=== PATIENT | male | born 1955 | race Caucasian/White ===

== ENCOUNTER 2020-01-21 10:25 | Day surgery (SDC) | payer MEDICARE, MEDICAID, SELFPAY ==
[2020-01-21] VITALS (11 sets, daily range): BP systolic 128–178; BP diastolic 70–92; PULSE 54–89; RESP 10–20; TEMP 36.2–36.5; O2SAT 88–98; BMI 29.9
--- NOTE | 2020-01-21 | PATH_ITS ---
[facility] Accession Number: [id number] . 01 Material submitted: . PART A: duodenum - DUODENUM PART B: gastrointestinal site - GASTRIC MUCOSA PART C: esophagus - DISTAL ESOPHAGUS PART D: colon - CECAL POLYPS . 01 Diagnosis: A. Duodenum, Biopsy: Small bowel mucosa with no diagnostic abnormality. Negative for active inflammation, features of sprue, dysplasia, or malignancy. . B. Stomach, Biopsies: Gastric antral mucosa with mild chronic inflammation. Negative for Helicobacter organisms by immunohistochemistry. Negative for intestinal metaplasia. Negative for dysplasia or malignancy. . C. Distal Esophagus, Biopsies: Squamocolumnar junctional mucosa with marked chronic inflammation, consistent with reflux esophagitis. Negative for specialized intestinal metaplasia or fungal organisms on AB/PAS stain. Negative for dysplasia or malignancy. . D. Cecum, Polyps: Fragments of tubular adenoma. [facility] 01/23/2020 1437 Local . 01 Electronically signed: . Isaac Whitmore MD, PhD, Pathologist NPI- [id number] . 01 Gross description: . Part A: DUODENUM: Received in formalin are 2 fragment(s) of flores, soft tissue measuring 0.1 x 0.1 x 0.1 cm to 0.3 x 0.3 x 0.3 cm submitted entirely in 1 cassette(s) Part B: GASTRIC MUCOSA: Received in formalin is 1 fragment(s) of flores, soft tissue measuring 0.2 x 0.2 x 0.2 cm submitted entirely in 1 cassette(s) Part C: DISTAL ESOPHAGUS: Received in formalin is 1 fragment(s) of flores, soft tissue measuring 0.2 x 0.2 x 0.2 cm submitted entirely in 1 cassette(s) Part D: CECAL POLYPS: Received in formalin are multiple fragment(s) of flores, soft tissue measuring 0.1 x 0.1 x 0.1 cm to 0.3 x 0.3 x 0.3 cm submitted entirely in 1 cassette(s) /KADIE 01/22/2020 0145 Local . 01 Microscopic: . B. An immunohistochemical stain was performed to evaluate for Helicobacter organisms and is negative. The control stain showed appropriate reactivity. . C. An AB/PAS stain is negative for goblet cells or fungal organisms. A control stain shows appropriate reactivity. . * This test was developed and its performance characteristics determined by [employer]. It has not been cleared or approved by the U.[place]. Food and Drug Administration. The FDA has determined that such clearance or approval is not necessary. This test is used for clinical purposes. It should not be regarded as investigational or for research. . 01 Pathologist provided ICD-10: K29.70, K20.9, D12.0 . 01 CPT . 520146, 996099, 995227, 394126, [id number], 875578 Performed at: 01 [facility] [address] [place] [address] [facility], [place], [place] [id number] MD Maurilio Rahman MD Phone: [phone]
[2020-01-21] MEDS: SODIUM CHLORIDE 0.9% 1,000 ML 200 ML IV (10:57)
--- NOTE | 2020-01-21 11:09 | PM.PREOP ---
Pre-operative Note COVID-19 COVID-19 status: Negative Result date/Date tested (Pos, Neg/Pending): 01/18/20 Interval Note History & Physical reviewed/Exam performed by Physician: No Changes to H&P: No ASA Class (for procedural sedation): III (recent tranfusion x 4 units for grade 4 anemia; etiology unknown)
[2020-01-21] MEDS: LIDOCAINE 4% SOLN 50 ML 20 ML TOP (11:18)
--- NOTE | 2020-01-21 11:31 | P.OP.ENDO_ITS ---
Operative Date/Time/Diagnoses Date of procedure: 01/21/20 Time of procedure: 11:31 Pre-op diagnosis: grade 4 anemia, unknown etiology Procedure & Clinicians Study performed: EGD with biopsies using cold forceps Conscious sedation by endoscopist Colonoscopy with polypectomy x 5 from cecum conscious sedation by endoscopist Same procedure as scheduled: Yes Indications: Grade 4 anemia with unknown etiology Surgeon: Hillary Lafleur Procedure Notes SCOAP/Timeout: Performed Procedure in detail: The patient was brought to the room and placed in left lateral decubitus position with all bony prominences padded. A bite block was positioned in the patient's mouth to protect the lips, teeth, and tongue for the procedure. A time-out was performed and then the patient was given procedural sedation starting with 3 mg of Versed and 100 mcg of fentanyl. An additional 3 mg of Versed were given during the esophagogastric duodenoscopy procedure. Vitals were monitored throughout the procedure and remained stable. Once adequately sedated, the procedure was begun. The lubricated gastroscope was passed through the bite block and across the tongue and into the esophagus without incident. A tubular view of the esophagus was maintained as the scope w as advanced through the esophagus and into the stomach. The scope was advanced through the stomach and to the pylorus. The scope was gently popped through the pylorus and into the duodenal bulb. The scope was flexed and advanced into the second and third portions of the duodenum. The duodenum and duodenal bulb appeared to have some chronic ulcers at multiple stages of healing. No active bleeding. The scope was withdrawn into the stomach. The stomach appeared normal, with some mild gastritis. The scope was retroflexed and the gastric cardia was examined. The hiatus appeared normal. The scope was then straightened, and withdrawn into the esophagus. The Z-line had a few small tongues of gastric mucosa which were less than one cm coming up into the esophagus. This was biopsied.. The distal esophagus appeared normal. The scope was then withdrawn through the esophagus with a tubular view. The scope was then withdrawn from the patient the procedure was concluded. Attention was then turned to the colonoscopy portion of the procedure. A rectal exam was performed revealing no abnormalities. The colonoscope was then introduced to the rectum and advanced to the cecum in the usual fashion. The cecum was identified by the appendiceal orifice, the mucosal tri-fold, and the ileocecal valve. The prep was poor. Extensive irrigation was done using several liters of water. Five small polyps were clumped together in the cecum. These were removed with cold forceps. The scope was then retracted while rotating side to side and examining each mucosal fold. At the conclusion of the procedure retroflexion was performed and small grade 1-2 internal hemorrhoids without stigmata of bleeding were seen. The scope was then withdrawn from the rectum the procedure was concluded. The patient tolerated the procedure well and was transferred to the PACU in stable condition. Scope withdrawal time: 21 Sedation minutes: 49 Findings: polyp (multiple cecal polyps) and other findings (chronic duodenitis; ulcers at various stages of healing) Specimen(s): other (Biopsies of duodenum, stomach, esophagus, and cecal polyps x5) Complications: none Impression: No obvious source of severe anemia Post-procedure Recommendations: Colonscopy in 3 years (Due to poor prep, small to medium-sized polyps could have been this) and Other recommendation (Consider adding an acid sia, such as famotidine or omeprazole to prevent inflammation of your stomach and duodenum. Discussed this with her primary doctor) Follow up: as needed Disposition: PACU
[2020-01-21 11:33] LABS: Hematocrit 28.3 % (41-53); Hemoglobin 8.7 g/dL (13.5-17.5); Mean Corpuscular HGB Conc 30.7 % (30-36); Mean Corpuscular Hemoglobin 21.9 PG (26-34); Mean Corpuscular Volume 71.5 fL (80-100); Platelet Count 305 X10^3/uL (150-400); Red Blood Cell Count 3.96 X10^6/uL (4.5-5.9); Red Cell Distribution Width 26.2 % (11.6-14.8); White Blood Cell Count 9.5 X10^3/uL (4.5-11.0)
[2020-01-21] MEDS: MIDAZOLAM 5 MG/5 ML VIAL IV (12:00)
--- NOTE | 2020-01-21 12:34 | SUR.PHASEI ---
On arrival to PACU, patient noted to have distended abdomen but denies pain. Encouraged patient to expel gas if needed. V/U.
--- NOTE | 2020-01-21 13:10 | SUR.PHASEII ---
4640 Message left for girlfriend to come in. Pt would like instructions reviewed with her. Declines more fluids. O2 sat 88% on arrival to [facility]. Position adjusted for improved posture with immediate improvement to 94%.
== END 2020-01-21 13:43 | disposition home or self-care (01) ==
PROVIDERS: PCP Family Medicine; Referring Provider Surgery; Visit Provider Surgery
PROC: 0DJ08ZZ Inspection of Upper Intestinal Tract, Via Natural or Artificial Opening Endoscopic (ICD-10-PCS; CPT 43235; principal; 2020-01-21 10:45)
PROC: 0DJD8ZZ Inspection of Lower Intestinal Tract, Via Natural or Artificial Opening Endoscopic (ICD-10-PCS; CPT 45378; 2020-01-21 10:45)
DX: D64.9 Anemia, unspecified (principal); K64.0 First degree hemorrhoids; K29.80 Duodenitis without bleeding; K29.50 Unspecified chronic gastritis without bleeding; K20.9 Esophagitis, unspecified; D12.0 Benign neoplasm of cecum
CPT/HCPCS: 45380; 43239; 36415; 85027; 99152; 99153; J2250